=== PATIENT | male | born 1980 | race African-American/Black ===

== ENCOUNTER 2023-10-31 17:11 | Inpatient (IN) | payer OTHER ==
[2023-10-31 18:27] VITALS: BMI 32.1
[2023-10-31] MEDS ORDERED: MAGNESIUM HYDROX 2400MG/30ML ORAL SUSPENSION 30 ML CUP PO PRN (19:22)
[2023-10-31] MEDS ORDERED: LOPERAMIDE HCL 2 MG CAPSULE PO PRN (19:22)
[2023-10-31] MEDS ORDERED: ACETAMINOPHEN 325 MG TABLET (FP) PO PRN (19:22)
[2023-10-31] MEDS ORDERED: NICOTINE POLACRILEX 2 MG GUM BUC PRN (19:22)
[2023-10-31] MEDS ORDERED: IBUPROFEN 600 MG TABLET (FP) PO PRN (19:22)
[2023-10-31] MEDS ORDERED: MAG HYDROX/AL HYDROX/SIMETH 30 ML UNIT-DOSE CUP PO PRN (19:22)
[2023-10-31] MEDS ORDERED: guaiFENesin 600 MG TABLET.ER (FP) PO PRN (19:22)
[2023-10-31] MEDS ORDERED: NICOTINE POLACRILEX 2 MG LOZENGE BC PRN (19:22)
[2023-10-31] MEDS ORDERED: DICYCLOMINE HCL 10 MG CAPSULE PO PRN (19:22)
[2023-10-31] MEDS ORDERED: BISMUTH SUBSALICYLATE 524 MG/30 ML PO PRN (19:22)
[2023-10-31] MEDS ORDERED: P-EPHED 60MG/TRIPROLIDI 2.5MG TABLET PO PRN (19:22)
[2023-10-31] MEDS ORDERED: BENZONATATE 200 MG CAPSULE PO PRN (19:22)
[2023-10-31] MEDS ORDERED: POLYETHYLENE GLYCOL (HEALTHYLAX) 3350 17 GM PACKET PO PRN (19:22)
[2023-10-31] MEDS ORDERED: BENZOCAINE/MENTHOL (CHLORASEPTIC ) LOZENGE MM PRN (19:22)
[2023-10-31] MEDS ORDERED: IBUPROFEN 400 MG TABLET (FP) PO PRN (19:22)
[2023-10-31] MEDS ORDERED: ONDANSETRON *ODT* 4 MG TABLET SL PRN (19:22)
[2023-10-31] MEDS: MELATONIN 5 MG TABLETS PO SCH (22:40)
[2023-10-31] MEDS: METHOCARBAMOL 500 MG TABLET PO PRN (22:40)
[2023-10-31] MEDS: THIAMINE 100 MG TABLET PO SCH (22:40)
[2023-10-31] MEDS: hydrOXYzine PAMOATE 25 MG CAPSULE (FP) PO PRN (22:41)
[2023-11-01] MEDS ORDERED: chlordiazePOXIDE HCL 25 MG CAPSULE PO PRN (09:50)
[2023-11-01] MEDS: chlordiazePOXIDE HCL 25 MG CAPSULE PO SCH (10:37)
[2023-11-01] MEDS: PRENATAL VITAMINS W/ FOLIC ACID TABLET (FP) PO SCH (10:38)
[2023-11-01 12:51] LABS: HEMATOCRIT 34.5 % (35.4-49); HEMOGLOBIN 11.2 GM/dL (11.7-16.9); MCH 25.4 pg (25.7-33.7); MCHC 32.4 g/dl (32.0-35.9); MEAN CELL VOLUME 78.4 fl (80-96); MEAN PLT VOLUME 8.9 fl (7.5-11.1); PLATELET COUNT 172 10^3/uL (134-434); RDW 17.3 % (11.9-15.9); WHITE BLOOD COUNT 6.5 K/mm3 (4.0-10.0)
[2023-11-01 13:00] LABS: CHLORIDE 110 mmol/L (98-107); POTASSIUM 4.1 mmol/L (3.5-5.1); SODIUM 143 mmol/L (136-145)
[2023-11-01 13:18] LABS: CALCIUM 8.6 mg/dL (8.5-10.1)
[2023-11-01 13:19] LABS: ALBUMIN 3.5 g/dl (3.4-5.0); ANION GAP 6 mmol/L (4-13); BLOOD UREA NITROGEN 9.2 mg/dL (7-18); CO2 27 mmol/L (21-32); GLUCOSE,RANDOM 92 mg/dL (74-106)
[2023-11-01 13:20] LABS: SGPT/ALT 36 U/L (13-61)
[2023-11-01 13:22] LABS: SGOT/AST 37 U/L (15-37)
[2023-11-01 13:23] LABS: BILIRUBIN,TOTAL 0.8 mg/dL (0.2-1); CREATININE 0.9 mg/dL (0.55-1.3); TOT PROT 6.7 g/dl (6.4-8.2)
[2023-11-01 13:24] LABS: ALK PHOS 66 U/L (45-117)
[2023-11-01] MEDS: traZODone HCL 50 MG TABLET (FP) PO SCH (22:29)
[2023-11-02] MEDS: SERTRALINE HCL 50 MG TABLET (FP) PO SCH (10:10)
[2023-11-02] MEDS ORDERED: diazePAM 5 MG TABLET PO PRN (12:53)
[2023-11-02] MEDS: diazePAM 5 MG TABLET PO SCH (16:57)
[2023-11-03] MEDS ORDERED: chlordiazePOXIDE HCL 25 MG CAPSULE PO SCH (05:00)
[2023-11-04] MEDS ORDERED: chlordiazePOXIDE HCL 10 MG CAPSULE PO PRN
[2023-11-04] MEDS ORDERED: chlordiazePOXIDE HCL 10 MG CAPSULE PO SCH (05:00)
[2023-11-04] MEDS: diazePAM 5 MG TABLET PO SCH (06:15)
[2023-11-04] MEDS: cloNIDine HCL 0.1 MG TABLET PO ONE (13:45)
[2023-11-05] MEDS ORDERED: chlordiazePOXIDE HCL 10 MG CAPSULE PO SCH (05:00)
[2023-11-05] MEDS: diazePAM 5 MG TABLET PO SCH (05:57)
[2023-11-06] MEDS ORDERED: chlordiazePOXIDE HCL 10 MG CAPSULE PO ONE (05:00)
[2023-11-06] MEDS: diazePAM 5 MG TABLET PO ONE (05:31)
[2023-11-07 09:02] VITALS: BP 119/64; PULSE 61; RESP 17; TEMP 98.9
== END 2023-11-07 11:05 | disposition other institution (70) | DRG 775 ==
LOC: YASAS 17:11 → Y3N 21:59
PROVIDERS: ADMIT Allergy & Immunology; ATTEND Surgery
PROC: HZ2ZZZZ Detoxification Services for Substance Abuse Treatment (ICD-10-PCS; principal; 2023-10-31)
DX: F10.230 Alcohol dependence with withdrawal, uncomplicated (principal); F17.210 Nicotine dependence, cigarettes, uncomplicated; F20.9 Schizophrenia, unspecified; F32.A Depression, unspecified; G47.00 Insomnia, unspecified; Z56.0 Unemployment, unspecified; Z59.00 Homelessness unspecified
CPT/HCPCS: 36415; 80053; 80305; 80307; 85027; 86780; 87811; 93005; 93010

== ENCOUNTER 2023-11-07 11:08 | Inpatient (IN) | payer OTHER ==
[2023-11-07] MEDS ORDERED: NALOXONE (NARCAN) HCL 4 MG/0.1 ML SPRAY NS PRN (12:48)
[2023-11-07] MEDS ORDERED: NICOTINE 14 MG/24 HOURS TOPICAL PATCH TD PRN (12:48)
[2023-11-07] MEDS ORDERED: LOPERAMIDE HCL 2 MG CAPSULE PO PRN (12:48)
[2023-11-07] MEDS ORDERED: BENZONATATE 200 MG CAPSULE PO PRN (12:48)
[2023-11-07] MEDS ORDERED: guaiFENesin 600 MG TABLET.ER (FP) PO PRN (12:48)
[2023-11-07] MEDS ORDERED: METHOCARBAMOL 500 MG TABLET PO PRN (12:48)
[2023-11-07] MEDS ORDERED: MAGNESIUM HYDROX 2400MG/30ML ORAL SUSPENSION 30 ML CUP PO PRN (12:48)
[2023-11-07] MEDS ORDERED: POLYETHYLENE GLYCOL (HEALTHYLAX) 3350 17 GM PACKET PO PRN (12:48)
[2023-11-07] MEDS ORDERED: MAG HYDROX/AL HYDROX/SIMETH 30 ML UNIT-DOSE CUP PO PRN (12:48)
[2023-11-07] MEDS ORDERED: NALOXONE HCL 0.4 MG/ML VIAL IVPUSH PRN (12:48)
[2023-11-07] MEDS ORDERED: NICOTINE POLACRILEX 4 MG LOZENGE BC PRN (12:48)
[2023-11-07] MEDS ORDERED: BENZOCAINE/MENTHOL (CHLORASEPTIC ) LOZENGE MM PRN (12:48)
[2023-11-07] MEDS ORDERED: NICOTINE POLACRILEX 4 MG GUM BUC PRN (12:48)
[2023-11-07] MEDS: THIAMINE 100 MG TABLET PO SCH (21:35)
[2023-11-07] MEDS: traZODone HCL 50 MG TABLET (FP) PO SCH (21:35)
[2023-11-07] MEDS: MELATONIN 5 MG TABLETS PO SCH (21:35)
[2023-11-08] MEDS ORDERED: SERTRALINE HCL 50 MG TABLET (FP) PO SCH (10:00)
[2023-11-08] MEDS: PRENATAL VITAMINS W/ FOLIC ACID TABLET (FP) PO SCH (10:09)
[2023-11-08] MEDS: SERTRALINE HCL 50 MG TABLET (FP) PO SCH (10:09)
[2023-11-08] MEDS: BUPRENORPHINE/NALOXONE 2 MG/0.5 MG FILM PACKET SL SCH (11:15)
[2023-11-08] MEDS: FERROUS SO4 325 MG TABLET (FP) PO SCH (11:16)
[2023-11-09 11:25] LABS: INR 0.95 (0.83-1.09); PROTHROMBIN TIME (PATIENT) 10.7 SEC (9.7-13.0)
[2023-11-09 12:20] LABS: HIV INTERPRETATION NEGATIVE (NEGATIVE)
[2023-11-09] MEDS: hydrOXYzine PAMOATE 25 MG CAPSULE (FP) PO PRN (21:42)
[2023-11-10] MEDS: ACETAMINOPHEN 325 MG TABLET (FP) PO PRN (06:24)
[2023-11-11] MEDS: BUPRENORPHINE/NALOXONE 4 MG/1 MG FILM PACKET SL SCH (09:57)
[2023-11-12] MEDS ORDERED: BENZONATATE 200 MG CAPSULE PO PRN (11:28)
[2023-11-12] MEDS: LISINOPRIL 10 MG TABLET PO SCH (12:24)
[2023-11-12] MEDS: guaiFENesin 600 MG TABLET.ER (FP) PO SCH (12:24)
[2023-11-13] MEDS ORDERED: BUPRENORPHINE/NALOXONE 8 MG/2 MG FILM PACKET SL SCH (10:00)
[2023-11-13] MEDS: BUPRENORPHINE/NALOXONE 4 MG/1 MG FILM PACKET SL SCH (10:19)
[2023-11-15] MEDS: LISINOPRIL 10 MG TABLET PO ONE (11:04)
[2023-11-15] MEDS: BUPRENORPHINE/NALOXONE 8 MG/2 MG FILM PACKET SL ONE (11:04)
[2023-11-15 16:01] LABS: BASO % 0.7 % (0-2.0); EOS % 8.3 % (0-4.5); HEMATOCRIT 36.1 % (35.4-49); HEMOGLOBIN 11.4 GM/dL (11.7-16.9); LYMPH % 28.1 % (8-40); MCH 25.1 pg (25.7-33.7); MCHC 31.7 g/dl (32.0-35.9); MEAN CELL VOLUME 79.1 fl (80-96); MEAN PLT VOLUME 8.9 fl (7.5-11.1); MONO % 12.6 % (3.8-10.2); NEUT % 50.3 % (42.8-82.8); PLATELET COUNT 318 10^3/uL (134-434); RBC 4.56 M/mm3 (4.00-5.60); WHITE BLOOD COUNT 8.5 K/mm3 (4.0-10.0)
[2023-11-15] MEDS: LISINOPRIL 10 MG TABLET PO SCH (18:19)
[2023-11-16] MEDS: BUPRENORPHINE/NALOXONE 4 MG/1 MG FILM PACKET SL SCH (06:31)
[2023-11-17] MEDS: amLODIPine BESYLATE 2.5 MG TABLET (FP) PO SCH (14:01)
[2023-11-18] MEDS: IBUPROFEN 400 MG TABLET (FP) PO PRN (10:17)
[2023-11-18] MEDS: amLODIPine BESYLATE 5 MG TABLET (FP) PO ONE (13:46)
[2023-11-18] MEDS: IBUPROFEN 600 MG TABLET (FP) PO PRN (17:40)
[2023-11-18] MEDS: BUPRENORPHINE/NALOXONE 8 MG/2 MG FILM PACKET SL SCH (17:52)
[2023-11-18] MEDS ORDERED: BUPRENORPHINE/NALOXONE 8 MG/2 MG FILM PACKET SL SCH (22:00)
[2023-11-19] MEDS ORDERED: amLODIPine BESYLATE 2.5 MG TABLET (FP) PO SCH (10:00)
[2023-11-19] MEDS: BUPRENORPHINE/NALOXONE 8 MG/2 MG FILM PACKET SL SCH (10:06)
[2023-11-19] MEDS: amLODIPine BESYLATE 2.5 MG TABLET (FP) PO SCH (10:07)
[2023-11-20 06:59] VITALS: RESP 18
[2023-11-21] MEDS: AMMONIUM LACTATE 12% LOTION 225 GM BOTTLE TP PRN (06:18)
[2023-11-25] MEDS ORDERED: OXYMETAZOLINE 0.05% NASAL SOLUTION 15 ML BOTTLE NS PRN (12:39)
[2023-11-25] MEDS ORDERED: CALMINE 3% AND PRAMOXINE 1% 118 ML BOTTLE TP PRN (12:40)
[2023-11-25] MEDS: amLODIPine BESYLATE 10 MG TABLET (FP) PO SCH (15:00)
[2023-11-27 07:04] VITALS: TEMP 97.1
[2023-11-27 09:57] VITALS: BP 136/70; PULSE 79
== END 2023-11-27 10:06 | disposition home or self-care (01) | DRG 772 ==
LOC: YASAS 11:08 → Y3W 11:09 → Y5N 15:05
PROVIDERS: ADMIT Allergy & Immunology; ATTEND Psychiatry & Neurology Pain Medicine
PROC: HZ42ZZZ Group Counseling for Substance Abuse Treatment, Cognitive-Behavioral (ICD-10-PCS; principal; 2023-11-07)
DX: F10.20 Alcohol dependence, uncomplicated (principal); F11.20 Opioid dependence, uncomplicated; F14.20 Cocaine dependence, uncomplicated; F17.210 Nicotine dependence, cigarettes, uncomplicated; F32.A Depression, unspecified; D64.9 Anemia, unspecified; E78.5 Hyperlipidemia, unspecified; G47.00 Insomnia, unspecified; J06.9 Acute upper respiratory infection, unspecified; Z59.02 Unsheltered homelessness
CPT/HCPCS: 0241U-QW; 36415; 82140; 82652; 83036; 83735; 85025; 85610; 86803; 87389; 87491; 87591; 87661